=== PATIENT | female | born 1975 | race Caucasian/White ===

== ENCOUNTER 2018-04-12 21:59 | Emergency (ER) | payer OTHER ==
[~2018-04-12] VITALS: Ht 162.6 cm; Wt 54.4 kg
[2018-04-12] MEDS ORDERED: TETRACAINE 0.5% OPHTH SOLUTION 4ML BOTTLE. ONE (22:21)
[2018-04-12] MEDS ORDERED: FLUORESCEIN 1MG EYE STRIP. ONE (22:21)
[2018-04-12 22:22] VITALS: BP 103/67
[2018-04-12] MEDS ORDERED: FLUORESCEIN 1MG EYE STRIP. OS ONE (22:30)
[2018-04-12] MEDS ORDERED: TETRACAINE 0.5% OPHTH SOLUTION 4ML BOTTLE. OS ONE (22:30)
--- NOTE | 2018-04-12 22:41 | PHYS DOC ---
Past History Past Medical History: No Pertinent History Past Surgical History: Appendectomy Alcohol Use: Occasionally Drug Use: None Adult General Chief Complaint Chief Complaint: EYE PROBLEMS HPI HPI 42-year-old female presents with left eye pain. Patient started to have discomfort yesterday. She normally wears contacts. She has not worn them since. She has erythema and discomfort with a thin drainage. She also has some sinus congestion and pressure. The patient is most concerned because she had a staph infection a couple of years ago that resulted in a corneal hole. Her current symptoms are similar to her symptoms at that time. She denies fever or chills. She does not have a known injury to the eye. She cannot think of when a foreign body might gotten in there. Review of Systems Review of Systems Constitutional: Denies fever or chills [] Eyes: Left eye pain[] HENT: Denies nasal congestion or sore throat [] Respiratory: Denies cough or shortness of breath [] Cardiovascular: No additional information not addressed in HPI [] GI: Denies abdominal pain, nausea, vomiting, bloody stools or diarrhea [] : Denies dysuria or hematuria [] Musculoskeletal: Denies back pain or joint pain [] Integument: Denies rash or skin lesions [] Neurologic: Denies headache, focal weakness or sensory changes [] Endocrine: Denies polyuria or polydipsia [] All other systems were reviewed and found to be within normal limits, except as documented in this note. Current Medications Current Medications Current Medications Medications (Trade) Dose Ordered Sig/Brendan Start Time Stop Time Status Last Admin Dose Admin Fluorescein Sodium (Ful-Misa 1mg) 1 strip 1X ONCE 04/12/18 22:30 04/12/18 22:31 UNV 04/12/18 22:31 1 STRIP Tetracaine HCl (Tetracaine) 1 drop 1X ONCE 04/12/18 22:30 04/12/18 22:31 UNV 04/12/18 22:32 1 DROP Allergies Allergies Allergies Coded Allergies Type Severity Reaction Last Updated Verified No Known Drug Allergies 04/12/18 No Physical Exam Physical Exam Constitutional: Well developed, well nourished, no acute distress, non-toxic appearance. [] HENT: Normocephalic, atraumatic, bilateral external ears normal, oropharynx moist, no oral exudates, nose normal. [] Eyes: PERRLA, EOMI, left conjunctiva is erythematous, minimal thin discharge. [ ] Neck: Normal range of motion, no tenderness, supple, no stridor. [] Cardiovascular:Heart rate regular rhythm, no murmur [] Lungs & Thorax: Bilateral breath sounds clear to auscultation [] Abdomen: Bowel sounds normal, soft, no tenderness, no masses, no pulsatile masses. [] Skin: Warm, dry, no erythema, no rash. [] Back: No tenderness, no CVA tenderness. [] Extremities: No tenderness, no cyanosis, no clubbing, ROM intact, no edema. [] Neurologic: Alert and oriented X 3, normal motor function, normal sensory function, no focal deficits noted. [] Psychologic: Affect normal, judgement normal, mood normal. [] Current Patient Data Vital Signs Vital Signs Date Time Temp Pulse Resp B/P (MAP) Pulse Ox O2 Delivery O2 Flow Rate FiO2 04/12/18 22:22 98.2 64 18 98 Room Air EKG EKG [] Radiology/Procedures Radiology/Procedures [] Course & Med Decision Making Course & Med Decision Making Pertinent Labs and Imaging studies reviewed. (See chart for details) The patient's for some exam did not show any uptake. I do not see any abrasions. The patient is a contact lens wearer and her history of serious infection the past, I will give her erythromycin ointment to cover for bacterial infection. I have explained to her that is likely viral but cannot rule out bacterial infection. She would prefer to go ahead and get the antibiotic and treat just in case. She is stable for discharge at this time. [] Dragon Disclaimer Dragon Disclaimer This electronic medical record was generated, in whole or in part, using a voice recognition dictation system. Departure Departure: Referrals: RUDI MÉNDEZ DO (PCP) MARTIN NASH DO Apr 12, 2018 22:41
[2018-04-12] MEDS ORDERED: ERYT1OIN6 OP (22:46)
== END 2018-04-12 22:50 | disposition home or self-care (01) ==
LOC: ER 21:59
DX: H57.12 Ocular pain, left eye (principal); L53.8 Other specified erythematous conditions; R09.81 Nasal congestion
CPT/HCPCS: 99283